=== PATIENT | male | born 2005 | race Two or more races ===

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

== ENCOUNTER 2025-08-10 15:01 | Emergency (ER) | payer SELFPAY ==
[2025-08-10 15:02] VITALS: BP 131/84; PULSE 75; RESP 16; TEMP 36.7; O2SAT 98
--- NOTE | 2025-08-10 15:17 | W.ED.DENTAL ---
HPI - Dental/Oral General: Chief complaint: Dental/Oral Stated complaint: right side tooth pain Time Seen by Provider: 08/10/25 15:12 History of Present Illness: 20-year-old man presents the emergency room with right lower posterior molar pain. This been going on for some time now but got worse over the last couple of days. He has not been to see a dentist yet. Has some swelling near the tooth. We discussed he needs to go see a dentist. Related Data Previous Rx's ?Medication ?Instructions ?Recorded adapalene 0.1 % topical cream 1 applic topical DAILY #45 grams 06/30/22 tretinoin 0.01 % topical gel 1 applic topical DAILY #15 grams 07/03/22 doxycycline hyclate 50 mg capsule 50 mg PO BID 30 days #60 caps 07/28/22 clindamycin 1 %-benzoyl peroxide 5 1 applic topical DAILY #50 grams 09/01/22 % topical gel amoxicillin 875 mg-potassium 1 tab PO BID 10 days #20 tabs 08/10/25 clavulanate 125 mg tablet hydrocodone 5 mg-acetaminophen 325 1 tab PO Q8H PRN pain #14 tabs 08/10/25 mg tablet polyethylene glycol 3350 17 17 g PO DAILY #510 grams 08/10/25 gram/dose oral powder (Miralax) Allergies Allergy/AdvReac Type Severity Reaction Status Date / Time ibuprofen Allergy Severe swelling Verified 05/03/23 20:30 lips Review of Systems Narrative: Constitutional symptoms: Negative except as documented in HPI. Skin symptoms: Negative except as documented in HPI. Eye symptoms: Negative except as documented in HPI. ENMT symptoms: Negative except as documented in HPI. Respiratory symptoms: Negative except as documented in HPI. Cardiovascular symptoms: Negative except as documented in HPI. Gastrointestinal symptoms: Negative except as documented in HPI. Genitourinary symptoms: Negative except as documented in HPI. Musculoskeletal symptoms: Negative except as documented in HPI. Neurologic symptoms: Negative except as documented in HPI. Psychiatric symptoms: Negative except as documented in HPI. Endocrine symptoms: Negative except as documented in HPI. PFSH ED PFSH: Family History Mother Psychiatric illness Bi-polar Social History Smoking and tobacco/nicotine status: never used tobacco/nicotine Second hand smoke exposure: Yes Alcohol intake: never Substance/Drug Use: never Adopted: Yes Highest education level completed: 11th Grade Sexually active: Yes Do you think of yourself as: Straight/Heterosexual Current gender identity: Male Physical Exam Narrative: EXAM NARRATIVE: General: Alert, no acute distress. Skin: warm and dry Head: Normocephalic Neck: Trachea midline Eye: Extraocular movements are intact. Ears, nose, mouth and throat: Oral mucosa moist. There does appear to be a little swelling around the right lower most posterior molar. Respiratory: Respirations are non-labored Musculoskeletal: Normal ROM Gastrointestinal: Abdomen does not appear distended Neurological: Alert and oriented, No focal neurological deficit observed. Psychiatric: Cooperative, appropriate mood & affect. Course Vital Signs: Vital signs: Vital Signs Temperature 98.1 F 08/10/25 15:02 Pulse Rate 75 08/10/25 15:02 Respiratory Rate 16 08/10/25 15:02 Blood Pressure 131/84 08/10/25 15:02 Pulse Oximetry 98 08/10/25 15:02 Oxygen Delivery Me thod Room Air 08/10/25 15:02 MDM - Dental/Oral Medical Decision Making Medical decision making Patient's reason for coming to the emergency room: Tooth pain Social determinants: Patient is employed. I reviewed the patient's medical record. Patient last seen in the emergency room in 2022 with strep pharyngitis I reviewed the patient's current home meds No chronic medications Alternate historians: None Differential diagnosis: including but not limited to and based on the above HPI, review of systems and physical exam: This seems to be a fairly obvious dental abscess or infection. Ultimately he needs to go see a dentist but we will place him on antibiotics and given some pain meds today. Assessment and plan: Dental abscess - Discharged home - Discussed plan with patient. Answered any questions. - Evaluation and treatment of this problem were appropriate in the emergency setting. No radiology studies performed this visit Discharge Plan Discharge Patient Disposition: Home Clinical Impression: Dental abscess Condition: Stable Prescriptions: New hydrocodone-acetaminophen 5-325 mg tablet 1 tab PO Q8H PRN (Reason: pain) Qty: 14 0RF Rx Instructions: Take 1/2 to 1 tab every 8 hours as needed for pain polyethylene glycol 3350 [Miralax] 17 gram/dose powder 17 g PO DAILY Qty: 510 0RF Rx Instructions: Take 1 scoop daily while taking pain medications. amoxicillin-pot clavulanate 875-125 mg tablet 1 tab PO BID 10 Days Qty: 20 0RF No Action clindamycin-benzoyl peroxide 1-5 % gel 1 applic topical DAILY Qty: 50 5RF adapalene 0.1 % cream 1 applic topical DAILY Qty: 45 2RF tretinoin 0.01 % gel 1 applic topical DAILY Qty: 15 2RF doxycycline hyclate 50 mg capsule 50 mg PO BID 30 Days Qty: 60 1RF Discharge Orders: Discharge ED (Routine); Ordered 08/10/25 Ordered By: Melissa Barfield Referrals: Miky Shields DO [Primary Care Provider, Family Practice] Discharge Diet: Advance as tolerated Patient Instructions: Dental Abscess (ED), Opioid Safety, Pain Management, Patient Portal & Tan Instructions Activity Restrictions/Additional Instructions: Thank you for choosing [facility] for your healthcare needs today. You have been screened and evaluated and felt safe for discharge. Health conditions do change or evolve sometimes and as such it is important that you follow up with your Primary Doctor to be re checked, 3-5 days is a general good time frame for follow up. You are always welcome to return to the ED for re assessment if your symptoms are worsening or you have new concerns Print Language: Indonesian Coding Level of Care Code ED Animal Pathology Teacher for Patrick Isidro
== END 2025-08-10 15:22 | disposition home or self-care (01) ==
PROVIDERS: Emergency Provider Emergency Medicine; PCP Family Medicine
DX: K04.7 Periapical abscess without sinus (principal)
CPT/HCPCS: 99283